=== PATIENT | female | born 1995 | race Caucasian/White ===

== ENCOUNTER 2023-07-05 07:23 | Emergency (ER) | payer SELFPAY ==
[~2023-07-05] VITALS: Ht 152.4 cm; Wt 53.1 kg
[2023-07-05 07:36] VITALS: BP 128/74; TEMP 98.4; O2SAT 100
[2023-07-05] MEDS ORDERED: LIDOCAINE HCL/MPF 1% 30 ML VIAL IJ ONE (07:56)
== END 2023-07-05 08:39 | disposition home or self-care (01) ==
LOC: ER 07:29
DX: S11.81XA Laceration without foreign body of other specified part of neck, initial encounter (principal); W45.8XXA Other foreign body or object entering through skin, initial encounter; Y93.89 Activity, other specified; Y92.89 Other specified places as the place of occurrence of the external cause; Y99.8 Other external cause status
CPT/HCPCS: 12001; 99282; J3490

== ENCOUNTER 2023-10-03 16:51 | Emergency (ER) | payer OTHER ==
[~2023-10-03] VITALS: Ht 152.4 cm; Wt 54.4 kg
[2023-10-03] MEDS ORDERED: FAMO20TA8 PO (18:02)
[2023-10-03] MEDS ORDERED: METH4TAB17 PO (18:02)
[2023-10-03] MEDS ORDERED: DIPH25TA62 PO (18:02)
[2023-10-03] MEDS ORDERED: EPIN0.3P3 IM (18:02)
[2023-10-03 18:16] VITALS: BP 105/64; TEMP 98; O2SAT 99
== END 2023-10-03 18:17 | disposition home or self-care (01) ==
LOC: ER 17:01
DX: R22.9 Localized swelling, mass and lump, unspecified (principal)